=== PATIENT | female | born 1995 | race Caucasian/White ===

== ENCOUNTER → 2016-09-21 | Outpatient (CLI) | payer MEDICAID ==
--- NOTE | 2016-09-23 09:41 | RADIOLOGY REPORT PS360 ---
US TRANSVAGINAL PREG HISTORY: OB US FOR DATES ORDERING PHYSICIAN: Perry Freeman MD PATIENT AGE: 20 years COMPARISON: None FINDINGS: An intrauterine gestational sac is present with a pole with a crown-rump length of 3.8cm correlating to gestational age of 10 weeks 5 days. heart tones are present with an FHR of 136 bpm's. Yolk sac is noted. The amnion and chorion have not yet fused. Adnexa: Unremarkable. IMPRESSION: Live intrauterine gestation at 10 weeks 5 days as described above.
== END ==
LOC: RAD 08:15
DX: O26.841 Uterine size-date discrepancy, first trimester (principal)

== ENCOUNTER → 2017-03-16 | Outpatient (CLI) | payer MEDICAID | LOC: LAB 14:13 | DX: Z34.80 Encounter for supervision of other normal pregnancy, unspecified trimester (principal) ==